=== PATIENT | male | born 1965 | race American Indian/Alaskan Native ===

== ENCOUNTER 2017-01-25 13:23 | Emergency (ER) | payer SELFPAY ==
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
[2017-01-25 18:51] VITALS: BP 155/99
== END 2017-01-25 18:50 | disposition home or self-care (01) ==
LOC: ED 13:23
DX: S01.81XA Laceration without foreign body of other part of head, initial encounter (principal); F17.200 Nicotine dependence, unspecified, uncomplicated; Y00.XXXA Assault by blunt object, initial encounter; Y93.89 Activity, other specified; Y99.8 Other external cause status; Y92.89 Other specified places as the place of occurrence of the external cause